=== PATIENT | female | born 1945 | race African-American/Black ===

== ENCOUNTER 2017-08-13 17:49 | Inpatient (IN) | payer OTHER ==
[~2017-08-13] VITALS: Ht 157.5 cm; Wt 91.6 kg
[2017-08-13] MEDS ORDERED: MORPHINE SULFATE 4 MG/ML CPJ (NOT FOR IM USE) IV STA (18:34)
[2017-08-13] MEDS ORDERED: ONDANSETRON HCL 4MG/2ML VIAL IV STA (18:34)
[2017-08-13] MEDS ORDERED: LABETALOL HCL 20MG/4ML CARPUJECT IV ONE (18:45)
[2017-08-13 18:58] LABS: CLARITY URINE CLEAR (CLEAR); COLOR URINE YELLOW (YELLOW); KETONES URINE NEGATIVE (NEGATIVE); LEUKOCYTE ESTERASE URINE NEGATIVE (NEGATIVE); NITRITE URINE NEGATIVE (NEGATIVE); OCCULT BLOOD URINE TRACE (NEGATIVE); PROTEIN URINE 1+ (NEGATIVE); SPECIFIC GRAVITY URINE 1.007 (1.005-1.030); UROBILINOGEN URINE 0.2 E.U./dL (0.2-1.0)
[2017-08-13 19:44] LABS: BASOPHILS % 1.3 % (0.0-2.0); EOSINOPHILS % 4.7 % (0.0-5.0); HEMATOCRIT. 40.2 % (36.0-48.0); HEMOGLOBIN. 13.7 g/dL (12.0-16.0); LYMPHOCYTES % 37.2 % (20.0-50.0); MEAN CORPUSCULAR HEMOGLOBIN 29.8 pg (28.0-32.0); MEAN CORPUSCULAR VOLUME 87.7 fL (81.0-99.0); MONOCYTES % 7.6 % (2.0-8.0); NEUTROPHILS % 49.2 % (40.0-76.0); PLATELET 308 x1000/uL (130-400); RED BLOOD CELL COUNT 4.58 mill/uL (4.2-5.4); RED CELL DISTRIBUTION WIDTH 13.9 % (11.6-14.6)
[2017-08-13 19:51] LABS: PROTHROMBIN TIME 10.9 sec (9.4-11.6)
[2017-08-13 19:54] LABS: CHLORIDE 105 mEq/L (98-107)
[2017-08-13] MEDS ORDERED: LABETALOL 5MG/ML SYR 20 MG/4 ML SYRINGE IV ONE (20:00)
[2017-08-13] MEDS ORDERED: DIPHENHYDRAMINE 50MG/ML VIAL IV PRN (21:30)
[2017-08-13] MEDS ORDERED: HYDROCODONE/ACETAMINOPHEN 5/325MG TABLET PO PRN (21:30)
[2017-08-13] MEDS ORDERED: ONDANSETRON HCL 4MG/2ML VIAL IV PRN (21:30)
[2017-08-13] MEDS ORDERED: IPRATROPIUM/ALBUTEROL 0.5-3(2.5)MG/3ML NEB INH PRN (21:30)
[2017-08-13] MEDS ORDERED: ACETAMINOPHEN 325MG TABLET PO PRN (21:30)
[2017-08-13] MEDS: CLONIDINE 0.1MG TABLET PO PRN (23:49)
[2017-08-14] VITALS: BP 196/82
[2017-08-14 00:23] VITALS: BP 196/82
[2017-08-14] MEDS ORDERED: ASPI-1159 PO (00:33)
[2017-08-14 04:00] VITALS: BP 145/70
[2017-08-14 06:33] LABS: BASOPHILS % 0.7 % (0.0-2.0); EOSINOPHILS % 2.8 % (0.0-5.0); HEMATOCRIT. 38.4 % (36.0-48.0); HEMOGLOBIN. 12.9 g/dL (12.0-16.0); LYMPHOCYTES % 37.3 % (20.0-50.0); MEAN CORPUSCULAR HEMOGLOBIN 29.9 pg (28.0-32.0); MEAN CORPUSCULAR VOLUME 88.9 fL (81.0-99.0); MEAN PLATELET VOLUME 8.6 fl (7.4-10.4); MONOCYTES % 9.6 % (2.0-8.0); NEUTROPHILS % 49.6 % (40.0-76.0); PLATELET 306 x1000/uL (130-400); RED BLOOD CELL COUNT 4.32 mill/uL (4.2-5.4); RED CELL DISTRIBUTION WIDTH 13.8 % (11.6-14.6)
[2017-08-14 07:06] LABS: CHLORIDE 103 mEq/L (98-107)
[2017-08-14 07:22] LABS: HDL CHOLESTEROL 74 mg/dL (40-59); LDL CHOLESTEROL 82 mg/dL (5-100)
[2017-08-14 07:30] LABS: *AMPHETAMINES SCREEN URINE NEGATIVE (NEGATIVE)
[2017-08-14 07:31] LABS: *BARBITURATES SCREEN URINE NEGATIVE (NEGATIVE); *BENZODIAZEPINES SCREEN URINE NEGATIVE (NEGATIVE); *COCAINE SCREEN URINE NEGATIVE (NEGATIVE); CANNABINOID URINE SCREEN NEGATIVE (NEGATIVE); METHADONE URINE SCREEN NEGATIVE (NEGATIVE); OPIATES URINE SCREEN PRESUMTIVE POSITIVE (NEGATIVE); PHENCYCLIDINE URINE SCREEN NEGATIVE (NEGATIVE)
[2017-08-14 08:00] VITALS: BP 202/84
[2017-08-14] MEDS: CLONIDINE 0.1MG TABLET PO PRN (10:32)
[2017-08-14 12:00] VITALS: BP 183/76
[2017-08-14] MEDS ORDERED: LISINOPRIL 20MG TABLET PO NR ×2 (12:15→13:11)
[2017-08-14] MEDS ORDERED: AMOXICILLIN/POTASSIUM CLAVULANATE 875/125MG TAB PO NR (12:15)
[2017-08-14] MEDS ORDERED: AZELASTINE HCL 137MCG/SPRAY NASAL PUMP BOTHNSTRLS SCH (12:30)
[2017-08-14] MEDS ORDERED: AMOXICILLIN/POTASSIUM CLAVULANATE 875/125MG TAB PO ONE (13:15)
[2017-08-14] MEDS ORDERED: HYDRALAZINE HCL 25MG TABLET PO SCH (14:00)
[2017-08-14 16:00] VITALS: BP 182/93
[2017-08-14] MEDS ORDERED: AMOXICILLIN/POTASSIUM CLAVULANATE 875/125MG TAB PO SCH (21:00)
[2017-08-15] MEDS ORDERED: LISINOPRIL 20MG TABLET PO SCH (09:00)
== END 2017-08-14 16:20 | disposition left against medical advice (07) | DRG 153 ==
LOC: ER 17:49 → 5WST 21:12 → ENRESERV 21:33 → 5WST 08-14 00:35
PROVIDERS: ADMIT Internal Medicine; ATTEND Internal Medicine
DX: J01.90 Acute sinusitis, unspecified (principal); I67.4 Hypertensive encephalopathy; E66.9 Obesity, unspecified; J31.0 Chronic rhinitis; Z60.2 Problems related to living alone; R94.31 Abnormal electrocardiogram [ECG] [EKG]; R07.89 Other chest pain; Z53.21 Procedure and treatment not carried out due to patient leaving prior to being seen by health care provider; I10 Essential (primary) hypertension; Z82.49 Family history of ischemic heart disease and other diseases of the circulatory system; Z88.2 Allergy status to sulfonamides; Z88.8 Allergy status to other drugs, medicaments and biological substances; Z68.36 Body mass index [BMI] 36.0-36.9, adult
CPT/HCPCS: 36415; 70450; 70551; 71045; 80053; 80061; 80305; 81003; 84484; 85025; 85610; 87040; 87086; 93005; 93306; J2270; J2405; J3490